=== PATIENT | male | born 1990 ===

== ENCOUNTER 2019-11-05 22:42 | Emergency (ER) | payer MEDICAID ==
[~2019-11-05] VITALS: Ht 177.8 cm; Wt 78.0 kg
[2019-11-05] MEDS ORDERED: PLEASE ENTER ALLERGIES MC SCH (23:00)
[2019-11-05] MEDS ORDERED: ZIPRASIDONE 20 MG INJ IM ONE ×2 (23:00→23:51)
[2019-11-05] MEDS ORDERED: LORazepam 1MG TABLET PO ONE (23:00)
--- NOTE | 2019-11-05 23:00 | NUR ---
GENERAL OPERATIONS AGENT AT BEDSIDE FOR BLOOD DRAW. PT ON [facility], NO ACUTE DISTRESS NOTED, INITIALLY REFUSING LAB WORK, PT HAS AGREED TO HAVE BLOOD DRAW. SAFETY PRECAUTIONS IN PLACE.
[2019-11-05 23:18] LABS: BASOPHILS # (AUTO) 0.02 x10^3/uL (0-0.1); BASOPHILS % (AUTO) 0 % (0-1); EOSINOPHILS # (AUTO) 0.23 x10^3/uL (0-0.4); EOSINOPHILS % (AUTO) 2 % (1-7); LYMPHOCYTES # (AUTO) 1.77 x10^3/uL (1-3.4); LYMPHOCYTES % (AUTO) 13 % (22-44); MD NO; MEAN CORPUSCULAR HEMOGLOBIN 30.7 pg (27.5-34.5); MEAN CORPUSCULAR HGB CONC 33.7 g/dL (33.2-36.2); MEAN CORPUSCULAR VOLUME 91.2 fL (81-97); MEAN PLATELET VOLUME 7.6 fL (7.4-10.4); MONOCYTES % (AUTO) 6 % (2-9); NEUTROPHILS # (AUTO) 11.09 x10^3/uL (1.8-6.8); NEUTROPHILS % (AUTO) 80 % (42-75); PLATELET COUNT 221 x10^3/uL (130-400); RED BLOOD COUNT 4.33 x10^6/uL (4.38-5.82); RED CELL DISTRIBUTION WIDTH 13.5 % (9.4-14.8)
[2019-11-05 23:27] LABS: ALANINE AMINOTRANSFERASE 148 U/L (12-78); ANION GAP 6 mmol/L (5-15); CALCIUM 8.8 mg/dL (8.5-10.1); CHLORIDE 105 mmol/L (98-107); CREATININE 0.87 mg/dL (0.7-1.3)
[2019-11-05 23:29] LABS: ALKALINE PHOSPHATASE 65 U/L (45-117); BILIRUBIN,TOTAL 0.3 mg/dL (0.2-1.0); TOTAL PROTEIN 7.2 g/dL (6.4-8.2)
[2019-11-05 23:31] LABS: SALICYLATE LEVEL < 1.7 mg/dL (2.8-20.0)
[2019-11-05] MEDS ORDERED: LORazepam 1MG TABLET ONE (23:51)
[2019-11-06] MEDS ORDERED: QUET200T PO (00:29)
[2019-11-06] MEDS ORDERED: HYDR50CA2 PO (00:29)
[2019-11-06] MEDS ORDERED: QUET400T PO (00:29)
[2019-11-06 01:03] LABS: AMPHETAMINE SCREEN, URINE Negative (Negative); BARBITURATE SCREEN, URINE Negative (Negative); BENZODIAZEPINE SCREEN, URINE Negative (Negative); CANNABINOID SCREEN, URINE Positive (Negative); COCAINE SCREEN, URINE Negative (Negative); METHADONE SCREEN, URINE Negative (Negative); OPIATE SCREEN, URINE Negative (Negative)
--- NOTE | 2019-11-06 02:26 | NUR ---
Patient agitated, unwilling to cooperate or appreciate discussions of boundaries. Patient fixating on demanding RN and sitter bring him cereal. Patient has been provided with at least two bowls of cereal. RN's attempts to communicate with patient were met with agitated language interrupting him. Attempts to explain demands are inappropriate and that the patient's were met with confrontational behaviors. Patient's agitated stance and verbalization seemd to be escalating and posing a safety risk the the sitter staff required security to be called. Patient was cooperative in getting into bed and didn't physically lash out at the staff. Due to this last behavior medication wasn't immediately given. Will allow primary nurse to reassess as appropriate
--- NOTE | 2019-11-06 02:39 | NUR ---
LATE ENTRY 0150. REPORT TO SOC PROVIDER, PT SPOKE TO SOC, PT STATES HE CAN'T REMEMBER WHERE HE STAYS AT OR WHO THE PERSON THAT PICKED HIM UP FROM [facility] IS. RN INFORMED ABOUT FRIEND OF PT WHOM DROPPED OFF HIS MEDICATIONS AND PROPERTY ADMINISTRATOR INFORMATION, NO CONTACT INFO FOR FRIEND LEFT AT THE TIME. RN LEFT [facility] ([phone]) CLINICAL PROPERTY ADMINISTRATOR FOR PT PER INFO LEFT AT NURSES STATION BY FRIEND.
--- NOTE | 2019-11-06 02:45 | NUR ---
Patient with Medicaid [place]. Denied by Quentin at [facility] and Saroj Grijalva at [facility] .
--- NOTE | 2019-11-06 02:47 | NUR ---
Patient Denied by [facility] as they do not take Medicaid [place].
--- NOTE | 2019-11-06 02:50 | NUR ---
Packet faxed to [facility], [facility], and [facility] as patient has medicaid [place].
[2019-11-06] MEDS ORDERED: QUETIAPINE 200 MG TABLET PO ONE (03:00)
--- NOTE | 2019-11-06 03:05 | NUR ---
PT COOPERATING WITH RN, REQUESTING TO TAKE SEROQUEL. PT AGREES TO COMPLY WITH NURSING AND STAFF, RESTRAINTS REMOVED. UPDATED ERP.
[2019-11-06] MEDS ORDERED: QUETIAPINE 100MG TABLET ONE (03:18)
--- NOTE | 2019-11-06 03:30 | NUR ---
SPOKE TO KIRBY AT [facility], RN GAVE KIRBY SUMMARY/REPORT ON PT'S MEDICAL HISTORY AND CURRENT SITUATION. PER KIRBY SHE WILL RETURN CALL FOR DECISION ON TRANSFER TO THEIR FACILITY.
--- NOTE | 2019-11-06 04:21 | NUR ---
SPOKE WITH ANTHONY AT [facility], GAVE REPORT AND MEDICAL HISTORY. PER ANTHONY SHE WILL RETURN CALL ONCE DETERMINATION FOR TRANSFER IS MADE.
--- NOTE | 2019-11-06 04:37 | NUR ---
Spoke with Carline at [facility]. They will accept patient. Accepting physician Dr. Mccoy.
--- NOTE | 2019-11-06 05:19 | NUR ---
LAY Auth Code [id number]
--- NOTE | 2019-11-06 05:35 | NUR ---
[facility] ETA 0600 to [facility].
--- NOTE | 2019-11-06 06:48 | NUR ---
PT SLEEPING IN NO ACUTE DISTRESS, RESPIRATIONS EVEN AND UNLABORED. SITTER AT BEDSIDE. AWAITING TRANSPORT TO [facility].
--- NOTE | 2019-11-06 06:54 | NUR ---
REPORT TO L[facility].
--- NOTE | 2019-11-06 07:12 | NUR ---
PATIENT HAS SITTER OUTSIDE ROOM AND IS IN BED RESTING. REPORT FROM TRISTIAN AND PATIENT AWAITING [facility] FOR TRANSPORT TO [facility].
[2019-11-06 07:21] VITALS: BP 119/78
--- NOTE | 2019-11-06 07:22 | NUR ---
[facility] HERE, REPORT GIVEN AND PATIENT TRANSFERED TO [facility]
== END 2019-11-06 07:24 ==
LOC: ED 11-06 02:14
DX: R45.851 Suicidal ideations (principal); F20.0 Paranoid schizophrenia; R41.82 Altered mental status, unspecified
CPT/HCPCS: 36415; 80053; 80307; 85025; 99285